=== PATIENT | male | born 1985 | race Caucasian/White ===

== ENCOUNTER 2017-07-20 23:01 | Emergency (ER) | payer OTHER ==
[~2017-07-20] VITALS: Ht 182.9 cm; Wt 127.3 kg
[2017-07-20] MEDS ORDERED: KETOROLAC 60 MG/2 ML VIAL (J1885) IM ONE (23:45)
[2017-07-20] MEDS ORDERED: METHOCARBAMOL 500 MG TAB PO ONE (23:45)
[2017-07-21] MEDS ORDERED: ROBA500T PO (00:16)
[2017-07-21] MEDS ORDERED: NAPR500T3 PO (00:16)
[2017-07-21 00:28] VITALS: BP 138/75
--- NOTE | 2017-07-21 08:04 | REP ---
Clinical: Pain . Technique: AP, lateral, bilateral oblique, and coned-down views. Findings: Alignment and lordosis is maintained. The vertebral bodies including transverse process and spinous processes are intact and normal. There is no evidence for acute fracture / compression injury or subluxation. No evidence for spondylolysis or spondylolisthesis. Minimal endplate sclerosis and disc space narrowing at L5-S1 cannot be excluded. Impression: Essentially age-appropriate examination. Very minimal disc space narrowing and L5-S1 cannot be excluded. If the patient remains symptomatic consider MRI for further investigation. Signed by Konstantin Corrigan MD 07/21/2017 07:55 A
== END 2017-07-21 00:32 | disposition home or self-care (01) ==
LOC: M ED 23:01
DX: M62.830 Muscle spasm of back (principal); Z88.0 Allergy status to penicillin; F17.210 Nicotine dependence, cigarettes, uncomplicated
CPT/HCPCS: 72110; 96372; 99283; J1885